=== PATIENT | male | born 1940 | race Caucasian/White ===

== ENCOUNTER 2017-04-10 11:41 | Emergency (ER) | payer OTHER ==
--- NOTE | 2017-04-10 11:57 | ED Physician Documentation ---
PD HPI UPPER EXT INJURY - Stated complaint Stated Complaint: RT 1ST FINGER LAC - History obtained from History obtained from: Patient - History of Present Illness Location: Right, Finger (index) Type of injury: Laceration (he was hammering a post and missed, struck finger with laceration. Denies bony pain. say it was glancing blow with the laceration mainly, not forceful impact.) Where injury occurred: Home Timing - onset: Today Timing - details: Abrupt onset, Still present Worsened by: Moving, Palpating Associated symptoms: No: Weakness, Numbness Similar symptoms before: Has not had sx before Recently seen: Not recently seen Review of Systems Neurologic: denies: Focal weakness, Numbness, Near syncope PD PAST MEDICAL HISTORY - Past Medical History Cardiovascular: None - Past Surgical History Past Surgical History: No - Present Medications Home Medications: Ambulatory Orders Medication Instructions Recorded Confirmed No Known Home Medications [No 06/09/13 04/10/17 Known Home Medications] - Allergies Allergies/Adverse Reactions: Allergies Allergy/AdvReac Type Severity Reaction Status Date / Time No Known Drug Allergies Allergy Verified 06/09/13 11:22 - Social History Does the pt smoke?: No Smoking Status: Former smoker Does the pt drink ETOH?: No Does the pt have substance abuse?: No - Immunizations Immunizations are current?: No Immunizations: TDAP >10years/unknown - POLST Patient has POLST: No PD ED PE NORMAL - Vitals Vital signs reviewed: Yes - General General: Alert and oriented X 3, No acute distress, Well developed/nourished - Derm Derm: Normal color, Warm and dry - Extremities Extremities: Other (right index finger with laceration lengthwise over dorsal proximal phalanx just to PIP. Exposes fatty tissue. No tendon injury.) - Neuro Neuro: Alert and oriented X 3, No motor deficit, No sensory deficit, Normal speech Results - Vitals Vitals: Vital Signs - 24 hr 04/10/17 13:30 Temperature 36.4 C L Heart Rate 44 L Respiratory 16 Rate Blood Pressure 128/80 O2 Saturation 99 Oxygen O2 Source Room air - Labs Labs: Laboratory Tests 04/10/17 12:25 POC Whole Bld Glucose 117 H Procedures - Laceration (location) right index finger Length in cm: 2 Wound type: Linear, Into subcut fat, Clean. No: Into muscle, Contaminated Neurovascular status: Sensory intact, Motor intact Tendon involvement: Tendon intact Anesthesia: Lidocaine 2% (digital block) Wound Preparation: Irrigated copiously NS, Wound explored, To the base. No: FB identified Skin layer closure: Nylon, Running, Size #-0 - enter number (4) Other: Patient tolerated well, No complications, Neurovascular intact, Dressing applied, Tetanus booster given Complexity: Simple PD MEDICAL DECISION MAKING - ED course Complexity details: considered differential, d/w patient Departure - Departure Disposition: 01 Home, Self Care Clinical Impression: Finger laceration Qualifiers: Encounter type: initial encounter Qualified Code(s): S61.219A - Laceration without foreign body of unspecified finger without damage to nail, initial encounter Condition: Stable Record reviewed to determine appropriate education?: Yes Instructions: ED Laceration Hand Comments: Drink lots of fluids today. It is okay to wash and shower. Clean off the wound twice a day with soap and water, or peroxide and water. Apply some antibiotic ointment to it to keep it moist. Also to watch for signs of infection such as purulence, redness or increasing pain. Return to your primary care or the ER at the specified time for suture removal. Suture removal 9 or 10 days. Tylenol or ibuprofen if needed for pains. You were given a tetanus booster today so will be good for 10 years. Discharge Date/Time: 04/10/17 13:30
[2017-04-10] MEDS ORDERED: TETANUS/DIPHTHERIA/PERTUSSIS 0.5 ML SYRINGE IM ONE ×2 (12:47→13:02)
[2017-04-10 13:32] VITALS: BP 128/80
== END 2017-04-10 13:30 | disposition home or self-care (01) ==
LOC: ED 11:41
DX: S61.210A Laceration without foreign body of right index finger without damage to nail, initial encounter (principal); W22.8XXA Striking against or struck by other objects, initial encounter; Y93.89 Activity, other specified; Z87.891 Personal history of nicotine dependence; Z23 Encounter for immunization
CPT/HCPCS: 12001; 90471; 99283

== ENCOUNTER 2023-03-27 13:41 | Emergency (ER) | payer MEDICARE, OTHER ==
[2023-03-27] MEDS ORDERED: PROPARACAINE 0.5% OPHTH DROPS 15 ML EACHEYE STA (14:26)
[2023-03-27 14:27] VITALS: BP 109/73
--- NOTE | 2023-03-27 14:46 | ED Physician Documentation ---
PD HPI OPHTHO - Stated complaint Stated Complaint: RT EYE INJ - Chief complaint Chief Complaint: Heent - History obtained from History obtained from: Patient - History of Present Illness Location: Right - Additional information Additional information: Patient was clearing brush when a branch scratched him in the right side of the eye. He had some discomfort initially though that has nearly completely resolved. He laid down for a while closed his eyes and then when he woke up he noticed that he had some redness in the right eye. His was concerned and brought him into the ER. Patient states that he has no eye pain now, no change in vision, he does wear glasses for reading, and has not had any eye drainage. He denies any other injuries today, no headache or loss of consciousness. Review of Systems Constitutional: reports: Reviewed and negative Eyes: reports: Other (Right eye redness) Cardiac: reports: Reviewed and negative Respiratory: reports: Reviewed and negative GI: reports: Reviewed and negative Skin: reports: Reviewed and negative Neurologic: reports: Reviewed and negative PD PAST MEDICAL HISTORY - Past Medical History Cardiovascular: None - Past Surgical History Past Surgical History: No - Present Medications Home Medications: Ambulatory Orders Medication Instructions Recorded Confirmed Polymyxin B/Trimeth Ophth Drop 1 drops RIGHTEYE QID 3 Days #10 ml 03/27/23 [Polytrim Ophth Drops] - Allergies Allergies/Adverse Reactions: Allergies Allergy/AdvReac Type Severity Reaction Status Date / Time No Known Drug Allergies Allergy Verified 06/09/13 11:22 - Social History Does the pt smoke?: No Smoking Status: Never smoker Does the pt drink ETOH?: No Does the pt have substance abuse?: No - Immunizations Immunizations are current?: No Immunizations: TDAP >10years/unknown - POLST Patient has POLST: No PD ED PE NORMAL - Vitals Vital signs reviewed: Yes - General General: Alert and oriented X 3, No acute distress, Well developed/nourished - HEENT HEENT: Atraumatic, PERRL, EOMI, Pharynx benign, Other (Right a subconjunctival hematoma lateral aspect of the right eye. There is a small thin corneal abrasion at approximately 9 o'clock position, that extends across the right cornea. ) Results - Vitals Vitals: Vital Signs - 24 hr 03/27/23 14:14 Temperature 36.7 C Heart Rate 61 Respiratory 16 Rate Blood Pressure 109/73 O2 Saturation 99 Oxygen O2 Source Room air PD Medical Decision Making - ED course Complexity details: considered differential, d/w patient, d/w family ED course: 10-year-old male presented with right eye injury as described above. He is well- appearing on physical exam, no acute distress. Dayanara exam reveals a intact globe with normal extraocular eye movements and unchanged vision. I did utilize proparacaine and fluorescein and evaluated the patient for corneal abrasion which showed a small sand corneal abrasion from the 9 o'clock position in the right cornea. He also has a subconjunctival hematoma of the right eye. I discussed these findings with patient and his and recommended that we utilize antibacterial eyedrops for the next 3 days, he can take Tylenol or ibuprofen as needed, and anticipate improvement in the next day or so however advised that the subconjunctival hemorrhage will take days to weeks to fully res olve. He can follow-up with his eye doctor if he has any new concerns or no improvement or return to the ER if worsening symptoms. Departure - Departure Disposition: 01 Home, Self Care Clinical Impression: Subconjunctival hemorrhage of right eye Corneal abrasion, right Qualifiers: Encounter type: initial encounter Qualified Code(s): S05.01XA - Injury of conjunctiva and corneal abrasion without foreign body, right eye, initial encounter Condition: Good Instructions: ED Eye Injury Corneal Abrasion, ED Eye Injury Subconj Hemorrhage Prescriptions: Polymyxin B/Trimeth Ophth Drop [Polytrim Ophth Drops] 1 drops RIGHTEYE QID 3 Days #10 ml Comments: Eyedrops sent to [facility]. The hemorrhage in the eye is like a bruise and will take days to weeks to resolve but is not harmful unless you develop eye pain, change in vision, or signs of infection. I have given you eyedrops to use for 3- 5 days for right eye corneal abrasion. If no improvement, see your eye doctor or return to the ER. Forms: PCP List
== END 2023-03-27 14:58 | disposition home or self-care (01) ==
LOC: ED 13:41
DX: H11.31 Conjunctival hemorrhage, right eye (principal); S05.01XA Injury of conjunctiva and corneal abrasion without foreign body, right eye, initial encounter; W22.8XXA Striking against or struck by other objects, initial encounter; Y93.H2 Activity, gardening and landscaping
CPT/HCPCS: 99282; 99283